=== PATIENT | male | born 1950 | race Caucasian/White ===

== ENCOUNTER → 2016-09-11 | Outpatient (CLI) | payer BC ==
[~2016-09-11] MED LIST: ACCUPRIL40MGTAB PO; ATACAND 16M16 MG/TAB PO; ATACAND16 MG PO; BYSTOLIC10 MG PO; CARDI-OMEGA1000 MG PO; CELEBREX200 MG PO; CHOLESTEROL MED; COPAXONE20 MG SC; CORDARONE200 MG/TAB PO; DARVOCET N 101 UDTAB PO; EPA FISH OIL1000 MG PO; FERROUS SU325 MG/TAB PO; FLEXERIL5 MG PO; FOLIC ACID 40400 MCG PO; GABAPENTIN300 MG PO; HCTZ 25MG TAB25 MG PO; HCTZ 25MG25 MG PO; HUMALOG100 U/ML SC; IBUPROFEN200 M1 PO; IMDUR 30MG30 MG/TAB PO; LANTUS100 U/ML SC; LIPITOR 40MG TA40 MG PO; LOPRESSOR 550 MG/TAB PO; LORTAB 7.5/5001 TAB PO; LOW DOSE ASPIRI81 MG PO; NOVOLOG 100U100 U/M1 SQ; PERCOCET 325 MG1 TA2 PO; PRAVACHOL80 MG PO; PRAVASTATIN40 MG PO; ULTRAM 50MG TAB50 MG PO; VICODIN 5/5001 UDTAB PO; VITAMIN C BUFF500 MG PO
== END ==
LOC: COL.VAS 08:51
DX: I73.89 Other specified peripheral vascular diseases (principal)

== ENCOUNTER → 2016-11-13 | Outpatient (CLI) | payer BC | LOC: COL.VAS 08:43 | DX: N18.9 Chronic kidney disease, unspecified (principal); N17.8 Other acute kidney failure ==

== ENCOUNTER 2018-02-19 18:46 | Emergency (ER) | payer BC ==
[~2018-02-19] VITALS: Ht 175.3 cm; Wt 95.5 kg
[2018-02-19 18:51] VITALS: BP 173/88; PULSE 68; TEMP 101.4
[2018-02-19] MEDS ORDERED: CRESTOR20 MG PO (19:17)
[2018-02-19] MEDS ORDERED: COPAXONE 20M20 MG/M1 SQ (19:21)
[2018-02-19] MEDS ORDERED: PRESERVISION1 SGL PO (19:23)
[2018-02-19] MEDS ORDERED: LASIX 40MG TABL40 MG PO (19:24)
[2018-02-19] MEDS ORDERED: CORDARONE200 MG/TAB PO (19:24)
[2018-02-19 19:31] LABS: BASO % 0.3 % (0.0-2.0); EOS # 0.1 (0.0-0.7); EOS % 1.4 % (0-4.0); GRAN % 82.2 % (42.2-75.2); HEMATOCRIT 41.4 % (42.0-52.0); LYMPH # 0.7 (1.2-3.4); LYMPH % 7.3 % (20.0-51.0); MEAN CELL VOLUME 88 fl (80.0-100.0); MEAN CORPUSCULAR HEMOGLOBIN 28 pg (27.0-31.0); MEAN CORPUSCULAR HGB CONC 31 g/dl (33.0-37.0); MEAN PLATELET VOLUME 12.2 fl (7.4-10.4); MONO # 0.8 (0.1-0.6); MONO % 8.3 % (1.7-9.3); PLATELET COUNT 202 K/mm3 (130-400); RED BLOOD COUNT 4.69 M/mm3 (4.20-5.60); REDCELL DISTRIBUTION WIDTH-CV 15.8 % (11.5-14.5)
[2018-02-19 19:39] LABS: ALBUMIN 3.8 gm/dL (3.5-5.0); BILIRUBIN,TOTAL 0.6 mg/dL (0.0-1.0); CALCIUM 9.2 mg/dL (8.4-10.2); CREATININE, serum 1.26 mg/dL (0.66-1.25)
[2018-02-19] MEDS ORDERED: DOXYCYCLINE 10100 MG PO ×2 (20:04)
[2018-02-19] MEDS ORDERED: AMOXICILLIN 8751 TAB PO (20:09)
== END 2018-02-19 21:15 | disposition home or self-care (01) ==
LOC: COL.ER 18:46
PROVIDERS: Family Medicine
DX: R04.0 Epistaxis (principal); R50.9 Fever, unspecified; I25.10 Atherosclerotic heart disease of native coronary artery without angina pectoris; E11.9 Type 2 diabetes mellitus without complications; G35 Multiple sclerosis; Z87.891 Personal history of nicotine dependence
CPT/HCPCS: J1956; J7030

== ENCOUNTER 2018-08-19 08:52 | Day surgery (SDC) | payer BC ==
[2018-08-19] VITALS (10 sets, daily range): BP systolic 124–165; BP diastolic 53–100; PULSE 40–52; TEMP 98–98.1
[~2018-08-19] VITALS: Ht 175.4 cm; Wt 97.7 kg
[~2018-08-19 08:52] MED LIST changes: +AMOXICILLIN 8751 TAB PO; +COPAXONE 20M20 MG/M1 SQ; +CRESTOR20 MG PO; +DOXYCYCLINE 10100 MG PO; +LASIX 40MG TABL40 MG PO; +PRESERVISION1 SGL PO
[2018-08-19 09:36] LABS: HEMATOCRIT 43.7 % (42.0-52.0); HEMOGLOBIN 13.7 g/dl (13.5-18.0); MEAN CELL VOLUME 91 fl (80.0-100.0); MEAN CORPUSCULAR HEMOGLOBIN 28 pg (27.0-31.0); MEAN CORPUSCULAR HGB CONC 31 g/dl (33.0-37.0); MEAN PLATELET VOLUME 12.4 fl (7.4-10.4); PLATELET COUNT 176 K/mm3 (130-400); RED BLOOD COUNT 4.83 M/mm3 (4.20-5.60); REDCELL DISTRIBUTION WIDTH-CV 15.6 % (11.5-14.5)
[2018-08-19 09:42] LABS: PROTHROMBIN TIME 11.9 SECONDS (9.7-12.8)
[2018-08-19 09:51] LABS: CALCIUM 9.5 mg/dL (8.4-10.2); CREATININE, serum 1.45 mg/dL (0.66-1.25); POTASSIUM 4.4 mmol/L (3.4-5.0)
[2018-08-19] MEDS ORDERED: COPAXONE 20M20 MG/M1 SQ (10:46)
[2018-08-19] MEDS ORDERED: PLAVIX 75MG TAB75 MG PO (10:47)
[2018-08-19] MEDS ORDERED: FLOMAX 0.40.4 MG/CAP PO (10:47)
[2018-08-19] MEDS ORDERED: DEMADEX 20MG20 M1 PO (10:48)
[2018-08-19] MEDS ORDERED: FLONASEALLERGY NS (10:49)
--- NOTE | 2018-08-19 12:54 | NUR ---
ALL MEDS GIVEN WITH VERBAL ORDER FROM MD. SEE MERGE FOR ADMIN TIMES.
[2018-08-19] MEDS ORDERED: NITRO-DUR0.4 MG/PAT TD (14:00)
--- NOTE | 2018-08-19 14:00 | NUR ---
PT RETURNED TO [facility] VIA BED FROM RELEASE MANAGER, PT IS ALERT, WITH HIM, REPORT RECIEVED. CALL LIGHT IN REACH, TAKES APPLE JUICE, REVIEWED BEDREST AND NOT BENDING RIGHT LEG INSTRUCTIONS
--- NOTE | 2018-08-19 14:45 | NUR ---
PT DOZES IN BED, NO C/O, TOOK MORE JUICE
--- NOTE | 2018-08-19 16:00 | NUR ---
PT TAKES JUICE AND PUDDING, CON'T SAME, NO C/O
--- NOTE | 2018-08-19 17:00 | NUR ---
REVIEWED DISCHARGE INST. WITH PT AND , PT WILL [facility] NEW RX, INFORMATION GIVEN TO PT. ALSO HAS APPT FOR FOLLOWUP. REVIEWED DISCHARGE ACTIVITY AND PRECAUTIONS WITH PT WITH VERBAL UNDERSTANDING. PT USED URINALIN BED, 350CC YELLOW URINE.
--- NOTE | 2018-08-19 17:40 | NUR ---
pt up on side of bed tolerated well, up and walked in halls, no c/o except soreness to back, dressing site unchanged. IV d'cd intact, pt dressed in room, discharged with paperwork via w/c to car with at 1800
== END 2018-08-19 18:13 | disposition home or self-care (01) ==
LOC: COL.CAR 08:52
PROVIDERS: Internal Medicine Cardiovascular Disease
DX: I25.10 Atherosclerotic heart disease of native coronary artery without angina pectoris (principal); Z95.5 Presence of coronary angioplasty implant and graft; I48.0 Paroxysmal atrial fibrillation; E78.5 Hyperlipidemia, unspecified; I73.9 Peripheral vascular disease, unspecified; Z95.1 Presence of aortocoronary bypass graft; G47.33 Obstructive sleep apnea (adult) (pediatric); G35 Multiple sclerosis; E78.2 Mixed hyperlipidemia; Z95.820 Peripheral vascular angioplasty status with implants and grafts; E11.9 Type 2 diabetes mellitus without complications; I10 Essential (primary) hypertension; I08.0 Rheumatic disorders of both mitral and aortic valves; Z79.4 Long term (current) use of insulin; Z79.899 Other long term (current) drug therapy; Z79.82 Long term (current) use of aspirin; Z79.01 Long term (current) use of anticoagulants; Z87.891 Personal history of nicotine dependence; Z83.3 Family history of diabetes mellitus; Z80.9 Family history of malignant neoplasm, unspecified; Z82.3 Family history of stroke
CPT/HCPCS: J0153; J1644; J2250; J3010; Q9967

== ENCOUNTER 2018-11-13 09:36 | Emergency (ER) | payer BC ==
[~2018-11-13] VITALS: Ht 175.3 cm; Wt 94.1 kg
[~2018-11-13 09:36] MED LIST changes: +BYSTOLIC5 MG PO; +DEMADEX 20MG20 M1 PO; +FLOMAX 0.40.4 MG/CAP PO; +FLONASEALLERGY NS; -HCTZ 25MG TAB25 MG PO; +HCTZ12.5TAB PO; +NITRO-DUR0.4 MG/PAT TD; +PLAVIX 75MG TAB75 MG PO
[2018-11-13 09:44] VITALS: TEMP 97.5
[2018-11-13 10:21] LABS: BASO % 0.3 % (0.0-2.0); EOS # 0.1 (0.0-0.7); EOS % 0.9 % (0-4.0); GRAN # 9.1 (1.4-6.5); GRAN % 78.6 % (42.2-75.2); HEMOGLOBIN 14.1 g/dl (13.5-18.0); LYMPH # 1.3 (1.2-3.4); LYMPH % 11.4 % (20.0-51.0); MEAN CELL VOLUME 91 fl (80.0-100.0); MEAN CORPUSCULAR HEMOGLOBIN 29 pg (27.0-31.0); MEAN CORPUSCULAR HGB CONC 31 g/dl (33.0-37.0); MEAN PLATELET VOLUME 12.4 fl (7.4-10.4); MONO # 0.9 (0.1-0.6); MONO % 7.9 % (1.7-9.3); PLATELET COUNT 185 K/mm3 (130-400); RED BLOOD COUNT 4.95 M/mm3 (4.20-5.60); REDCELL DISTRIBUTION WIDTH-CV 15.1 % (11.5-14.5)
[2018-11-13 10:25] LABS: ALANINE AMINOTRANSFERASE 16 U/L (21-72); ALBUMIN 4.2 gm/dL (3.5-5.0); ALKALINE PHOSPHATASE 153 U/L (50-136); ANION GAP 5 mmol/L (7-16); AST,SGOT 37 U/L (15-37); BILIRUBIN,TOTAL 0.5 mg/dL (0.0-1.0); BLOOD UREA NITROGEN 66 mg/dL (9-20); CALCIUM 10.1 mg/dL (8.4-10.2); CARBON DIOXIDE 32 mmol/L (22-30); CHLORIDE 102 mmol/L (98-107); CREATININE, serum 2.08 (0.66-1.25); GLUCOSE 105 mg/dL (74-106); INR 0.9 (0.8-3.0); LIPASE 59 U/L (23-300); POTASSIUM 5.3 mmol/L (3.4-5.0); PROTHROMBIN TIME 10.6 SECONDS (9.7-12.8); SODIUM 140 mmol/L (137-145); TOTAL PROTEIN 7.7 gm/dL (6.4-8.2)
[2018-11-13 10:36] LABS: TROPONIN-I < 0.012 ng/mL (0.000-0.035)
[2018-11-13] MEDS ORDERED: FLEXERIL 1010 MG/TAB PO (12:55)
[2018-11-13] MEDS ORDERED: LIDODERM 5% PATC1 EA TP (13:06)
[2018-11-13 13:08] VITALS: BP 155/68; PULSE 48
== END 2018-11-13 13:10 | disposition home or self-care (01) ==
LOC: COL.ER 09:36
PROVIDERS: Emergency Medicine
DX: M54.12 Radiculopathy, cervical region (principal); E11.9 Type 2 diabetes mellitus without complications; E78.5 Hyperlipidemia, unspecified; Z79.4 Long term (current) use of insulin; Z79.82 Long term (current) use of aspirin; Z79.51 Long term (current) use of inhaled steroids; Z95.0 Presence of cardiac pacemaker; Z87.891 Personal history of nicotine dependence
CPT/HCPCS: J2270; J7030

== ENCOUNTER 2019-09-14 13:30 | Outpatient (RCR) | payer BC ==
[~2019-09-14 13:30] MED LIST changes: +FLEXERIL 1010 MG/TAB PO; +LIDODERM 5% PATC1 EA TP
== END 2019-11-30 | disposition home or self-care (01) ==
LOC: WSST
DX: R47.02 Dysphasia (principal); R13.13 Dysphagia, pharyngeal phase; R49.8 Other voice and resonance disorders

== ENCOUNTER 2022-02-03 20:51 | Emergency (ER) | payer MEDICARE, BC ==
[~2022-02-03] VITALS: Ht 175.3 cm; Wt 87.3 kg
[2022-02-03 21:05] VITALS: TEMP 98.1
[2022-02-03 21:38] LABS: BASO % 0.2 % (0.0-2.0); EOS % 0.2 % (0.0-4.0); GRAN # 9.1 K/mm3 (1.4-6.5); GRAN % 82.2 % (42.2-75.2); HEMATOCRIT 40.9 % (42.0-52.0); HEMOGLOBIN 13.2 g/dl (13.5-18.0); LYMPH # 1.1 K/mm3 (1.2-3.4); LYMPH % 9.8 % (20.0-51.0); MEAN CELL VOLUME 90 fl (80.0-100.0); MEAN CORPUSCULAR HEMOGLOBIN 29 pg (27-31); MEAN CORPUSCULAR HGB CONC 32 g/dl (33.0-37.0); MEAN PLATELET VOLUME 12.2 fl (7.4-10.4); MONO # 0.8 K/mm3 (0.1-0.6); MONO % 6.9 % (1.7-9.3); PLATELET COUNT 168 K/mm3 (130-400); RED BLOOD COUNT 4.53 M/mm3 (4.20-5.60)
[2022-02-03 21:42] LABS: COLLECTION METHOD CLEAN CATCH
[2022-02-03 21:49] LABS: MUCOUS Present (NOT PRESENT); PH 5 (5-8); SQUAMOUS EPITHELIAL None Seen /hpf (0-10); URINE APPEARANCE Clear (CLEAR/HAZY); URINE BACTERIA None Seen /hpf (NONE SEEN); URINE BILIRUBIN Negative (NEGATIVE); URINE BLOOD Negative (NEGATIVE); URINE COLOR Yellow (YELLOW); URINE GLUCOSE 1+ (NEGATIVE); URINE KETONE Negative (NEGATIVE); URINE LEUKOCYTE ESTERASE Negative (NEGATIVE); URINE NITRATE Negative (NEGATIVE); URINE PROTEIN(semi-quant) 2+ (NEGATIVE); URINE RBC 20-50 /hpf (0-2); URINE UROBILINOGEN Negative (NEGATIVE)
[2022-02-03 21:57] LABS: ALBUMIN 3.6 gm/dL (3.4-4.8); BILIRUBIN,TOTAL 0.5 mg/dL (0.2-1.2); CALCIUM 9.1 mg/dL (8.4-10.2); CREATININE, serum 1.93 mg/dL (0.72-1.25); POTASSIUM 4.5 mmol/L (3.5-4.5); TOTAL PROTEIN 6.8 gm/dL (6.2-8.1)
[2022-02-03] MEDS ORDERED: NORCO 325 MG-51 TAB PO (22:59)
[2022-02-03] MEDS ORDERED: ZOFRAN ODT4 MG PO (22:59)
[2022-02-03 23:08] VITALS: BP 172/65; PULSE 58
== END 2022-02-03 23:08 | disposition home or self-care (01) ==
LOC: COL.ER 20:51
PROVIDERS: Emergency Medicine
DX: N13.2 Hydronephrosis with renal and ureteral calculous obstruction (principal); M54.50 Low back pain, unspecified
CPT/HCPCS: J1885; J2270; J7030